=== PATIENT | male | born 1965 | race Caucasian/White ===

== ENCOUNTER 2017-09-17 10:55 | Inpatient (IN) ==
[2017-09-17] MEDS ORDERED: DEXTROSE 50% 25 GM/50 ML VIAL IV PRN (11:05)
[2017-09-17] MEDS ORDERED: GLUCAGON 1 MG VIAL IM PRN (11:05)
[2017-09-17] MEDS: INSULIN REGULAR 100 UNIT/ML SUBCUT SCH ×3 (12:09→21:11)
[2017-09-17] MEDS: SODIUM CHLORIDE 0.45% 1,000 ML IV SCH (12:50)
[2017-09-17 12:57] LABS: Apearance,Urine CLEAR (Clear); Blood, Urine Negative (Negative); Glucose,Urine (UA) Negative (Negative); Ketones,Urine 5 mg/dL (Negative); Mucus,Urine Few /LPF (Occasional); Nitrite,Urine Negative (Negative); Protein,Urine 100 MG/DL; RBC,Urine 1 /HPF (0-4); Urine Color Amber (Yellow); Urine Specific Gravity 1.034 (1.001-1.035); WBC,Urine 2 /HPF (0-6)
[2017-09-17 13:00] LABS: Bilirubin,Urine Moderate mg/dL (Negative)
[2017-09-17] MEDS: LEVOFLOXACIN INJ 500 MG in PREMIX 1 EACH IV SCH (14:20)
[2017-09-17] MEDS: ACETAMINOPHEN 325 MG TABLET PO PRN ×2 (14:23→22:51)
[2017-09-17 15:07] LABS: Eosinophils % 0.7 % (0.00-10.9); Hematocrit 48.7 VOL% (42.0-52.0); Immature Granulocytes % 0.7 %; Immature Granulocytes Absolute 0.03 #; Lymphocytes # 0.3 10*3/uL (1.4-4.0); Lymphocytes % 6.7 % (21.2-54.2); Mean Corpuscular HGB Conc 34.9 GM/DL (32-36); Mean Corpuscular Hemoglobin 29 PG (27-34); Mean Corpuscular Volume 82.4 FL (87-102); Mean Platelet Volume 10.5 FL (9.6-12.0); Monocytes # 0.3 10*3/uL (0.11-0.8); Monocytes % 7.6 % (1.7-12.7); Neutrophils # 3.5 10*3/uL (1.4-7.4); Neutrophils % 83.3 % (38.7-73.9); Platelet Count 138 T/CUMM (130-400); Red Blood Count 5.91 MC/CUMM (3.8-5.5); Red Cell Distribution Width 12.6 % (9.3-17.3); White Blood Count 4.2 T/CUMM (4-12)
[2017-09-17 15:27] LABS: Free T4 (Free Thyroxine) 1.2 NG/DL (0.76-1.46)
[2017-09-17] MEDS: CLINDAMYCIN INJ 300 MG in PREMIX 1 EACH IV SCH ×2 (15:30→22:48)
[2017-09-17 15:33] LABS: Albumin 2.9 G/DL (3.4-5.0); Calcium 7.8 MG/DL (8.5-10.1); Osmolality,Calculated 276.7 MOS/KG (273-304); Potassium 3.7 MMOL/L (3.5-5.1); Thyroid Stimulating Hormone 0.886 uIU/ml (0.358-3.74); Total Protein 6.2 G/DL (6.4-8.3)
[2017-09-17] MEDS: ONDANSETRON 4 MG/2 ML VIAL IV PRN ×2 (20:09→23:26)
[2017-09-17] MEDS: CORTISONE ACETATE 25 MG TABLET PO SCH (21:50)
[2017-09-18] MEDS: SODIUM CHLORIDE 0.45% 1,000 ML IV SCH ×3 (04:28→20:45)
[2017-09-18] MEDS: ONDANSETRON 4 MG/2 ML VIAL IV PRN ×3 (04:30→20:32)
[2017-09-18] MEDS: CLINDAMYCIN INJ 300 MG in PREMIX 1 EACH IV SCH ×3 (05:33→22:44)
[2017-09-18 08:10] LABS: Albumin 2.7 G/DL (3.4-5.0); Bilirubin,Total 3.2 MG/DL (0.2-1.0); Calcium 7.7 MG/DL (8.5-10.1); Osmolality,Calculated 271.1 MOS/KG (273-304); Potassium 4.2 MMOL/L (3.5-5.1); Total Protein 5.9 G/DL (6.4-8.3)
[2017-09-18 08:30] LABS: Basophils % 0.9 % (0.0-0.8); Eosinophils # 0.3 10*3/uL (0.0-0.87); Eosinophils % 7.5 % (0.00-10.9); Hematocrit 44.3 VOL% (42.0-52.0); Hemoglobin 15.7 GM/DL (14.0-18.0); Immature Granulocytes % 0.3 %; Immature Granulocytes Absolute 0.01 #; Lymphocytes # 0.6 10*3/uL (1.4-4.0); Lymphocytes % 18.5 % (21.2-54.2); Mean Corpuscular HGB Conc 35.4 GM/DL (32-36); Mean Corpuscular Hemoglobin 29 PG (27-34); Mean Corpuscular Volume 82.5 FL (87-102); Mean Platelet Volume 10.3 FL (9.6-12.0); Monocytes # 0.4 10*3/uL (0.11-0.8); Monocytes % 12.4 % (1.7-12.7); Neutrophils # 2.1 10*3/uL (1.4-7.4); Neutrophils % 60.4 % (38.7-73.9); Red Blood Count 5.37 MC/CUMM (3.8-5.5); Red Cell Distribution Width 12.4 % (9.3-17.3); White Blood Count 3.5 T/CUMM (4-12)
[2017-09-18 08:35] LABS: Platelet Count 82 T/CUMM (130-400)
[2017-09-18] MEDS: FLUDROCORTISONE 0.1 MG TABLET PO SCH (08:47)
[2017-09-18] MEDS: LISINOPRIL 5 MG TABLET PO SCH (08:47)
[2017-09-18] MEDS: DOXYCYCLINE HYCLATE INJ 100 MG in SODIUM CHLORIDE 0.9% 100 ML IV SCH ×2 (08:47→20:33)
[2017-09-18] MEDS: INSULIN GLARGINE 100 UNIT/ML SUBCUT SCH (08:53)
[2017-09-18] MEDS: INSULIN REGULAR 100 UNIT/ML SUBCUT SCH ×4 (08:56→20:40)
[2017-09-18 09:23] LABS: Hypochromasia 1+; Microcytosis Slight; Platelet Estimate Decreased
[2017-09-18] MEDS: IBUPROFEN 400 MG TABLET PO PRN ×2 (10:33→20:33)
[2017-09-18] MEDS: MONTELUKAST 10 MG TABLET PO SCH (10:33)
[2017-09-18 11:22] LABS: Hepatitis A Ab IgM Quant 0.26 Index; Hepatitis A Ab IgM Result Negative (Negative); Hepatitis B Core IgM Quant 0.11 Index; Hepatitis B Core IgM Result Negative (Negative); Hepatitis B Surface Ag Quant < 0.10 Index; Hepatitis B Surface Ag Result Negative (Negative); Hepatitis C Virus Ab Quant < 0.02 Index; Hepatitis C Virus Ab Result Negative (Negative)
[2017-09-18] MEDS: CORTISONE ACETATE 25 MG TABLET PO SCH ×3 (11:48→20:32)
[2017-09-18] MEDS: LEVOFLOXACIN INJ 500 MG in PREMIX 1 EACH IV SCH (12:38)
[2017-09-18] MEDS: ACETAMINOPHEN 325 MG TABLET PO PRN ×2 (14:03→17:37)
[2017-09-19] MEDS: ACETAMINOPHEN 325 MG TABLET PO PRN (03:27)
[2017-09-19 05:29] LABS: Basophils % 1.1 % (0.0-0.8); Eosinophils # 0.1 10*3/uL (0.0-0.87); Eosinophils % 4.4 % (0.00-10.9); Hemoglobin 16.1 GM/DL (14.0-18.0); Immature Granulocytes % 0.7 %; Immature Granulocytes Absolute 0.02 #; Lymphocytes # 0.6 10*3/uL (1.4-4.0); Lymphocytes % 22.5 % (21.2-54.2); Mean Corpuscular HGB Conc 35.8 GM/DL (32-36); Mean Corpuscular Hemoglobin 30 PG (27-34); Mean Corpuscular Volume 82.6 FL (87-102); Mean Platelet Volume 10.2 FL (9.6-12.0); Monocytes # 0.3 10*3/uL (0.11-0.8); Neutrophils # 1.6 10*3/uL (1.4-7.4); Neutrophils % 59.3 % (38.7-73.9); Red Blood Count 5.45 MC/CUMM (3.8-5.5); Red Cell Distribution Width 12.3 % (9.3-17.3); White Blood Count 2.8 T/CUMM (4-12)
[2017-09-19 05:30] LABS: Platelet Count 87 T/CUMM (130-400)
[2017-09-19] MEDS: CLINDAMYCIN INJ 300 MG in PREMIX 1 EACH IV SCH ×3 (05:45→22:51)
[2017-09-19 05:49] LABS: Hypochromasia Slight; Microcytosis Slight; Platelet Estimate Decreased
[2017-09-19 05:57] LABS: Albumin 2.7 G/DL (3.4-5.0); Bilirubin,Total 2.3 MG/DL (0.2-1.0); Calcium 8.1 MG/DL (8.5-10.1); Osmolality,Calculated 272.2 MOS/KG (273-304); Potassium 5.6 MMOL/L (3.5-5.1); Total Protein 6.1 G/DL (6.4-8.3)
[2017-09-19] MEDS: INSULIN REGULAR 100 UNIT/ML SUBCUT SCH ×4 (07:18→21:26)
[2017-09-19] MEDS ORDERED: POTASSIUM CHLORIDE 20 MEQ TABLET PO PRN (07:28)
[2017-09-19] MEDS: DOXYCYCLINE HYCLATE INJ 100 MG in SODIUM CHLORIDE 0.9% 100 ML IV SCH ×2 (08:03→20:00)
[2017-09-19] MEDS: CORTISONE ACETATE 25 MG TABLET PO SCH ×3 (09:21→20:59)
[2017-09-19] MEDS: LISINOPRIL 5 MG TABLET PO SCH (09:25)
[2017-09-19] MEDS: MONTELUKAST 10 MG TABLET PO SCH (09:25)
[2017-09-19] MEDS: FLUDROCORTISONE 0.1 MG TABLET PO SCH (09:26)
[2017-09-19] MEDS: IBUPROFEN 400 MG TABLET PO PRN ×2 (09:27→15:45)
[2017-09-19] MEDS: INSULIN GLARGINE 100 UNIT/ML SUBCUT SCH (09:28)
[2017-09-19] MEDS: ONDANSETRON 4 MG/2 ML VIAL IV PRN ×2 (09:31→17:51)
[2017-09-19] MEDS: LEVOFLOXACIN INJ 500 MG in PREMIX 1 EACH IV SCH (12:17)
[2017-09-19] MEDS: SODIUM CHLORIDE 0.45% 1,000 ML IV SCH (12:21)
[2017-09-19] MEDS: ALUMINUM/MAGNES/SIMETH MAX STR 30 ML UDCUP PO PRN ×2 (15:40→21:07)
[2017-09-19] MEDS: PROMETHAZINE 25 MG/1 ML VIAL IM PRN (20:57)
[2017-09-20] MEDS: ALUMINUM/MAGNES/SIMETH MAX STR 30 ML UDCUP PO PRN (04:25)
[2017-09-20 05:57] LABS: Basophils % 0.6 % (0.0-0.8); Eosinophils # 0.1 10*3/uL (0.0-0.87); Eosinophils % 2.3 % (0.00-10.9); Hematocrit 47.9 VOL% (42.0-52.0); Hemoglobin 16.3 GM/DL (14.0-18.0); Immature Granulocytes % 0.4 %; Immature Granulocytes Absolute 0.02 #; Lymphocytes # 1.3 10*3/uL (1.4-4.0); Lymphocytes % 26.9 % (21.2-54.2); Mean Corpuscular Hemoglobin 29 PG (27-34); Mean Corpuscular Volume 84.5 FL (87-102); Mean Platelet Volume 10.4 FL (9.6-12.0); Monocytes # 0.5 10*3/uL (0.11-0.8); Monocytes % 9.9 % (1.7-12.7); Neutrophils # 2.9 10*3/uL (1.4-7.4); Neutrophils % 59.9 % (38.7-73.9); Platelet Count 125 T/CUMM (130-400); Red Blood Count 5.67 MC/CUMM (3.8-5.5); Red Cell Distribution Width 12.6 % (9.3-17.3); White Blood Count 4.8 T/CUMM (4-12)
[2017-09-20] MEDS: CLINDAMYCIN INJ 300 MG in PREMIX 1 EACH IV SCH ×2 (06:33→17:46)
[2017-09-20] MEDS: SODIUM CHLORIDE 0.45% 1,000 ML IV SCH ×2 (06:33→16:44)
[2017-09-20 06:36] LABS: Albumin 3.1 G/DL (3.4-5.0); Bilirubin,Total 1.8 MG/DL (0.2-1.0); Calcium 8.4 MG/DL (8.5-10.1); Osmolality,Calculated 267.7 MOS/KG (273-304); Potassium 5.1 MMOL/L (3.5-5.1); Total Protein 6.6 G/DL (6.4-8.3)
[2017-09-20] MEDS: DOXYCYCLINE HYCLATE INJ 100 MG in SODIUM CHLORIDE 0.9% 100 ML IV SCH ×2 (07:29→20:30)
[2017-09-20] MEDS: LISINOPRIL 5 MG TABLET PO SCH (08:43)
[2017-09-20] MEDS: FLUDROCORTISONE 0.1 MG TABLET PO SCH (08:43)
[2017-09-20] MEDS: MONTELUKAST 10 MG TABLET PO SCH (08:43)
[2017-09-20] MEDS: INSULIN REGULAR 100 UNIT/ML SUBCUT SCH ×4 (08:45→21:09)
[2017-09-20] MEDS ORDERED: PANTOPRAZOLE 40 MG TABLET PO SCH (09:00)
[2017-09-20] MEDS: CORTISONE ACETATE 25 MG TABLET PO SCH ×2 (09:02→21:18)
[2017-09-20] MEDS: INSULIN GLARGINE 100 UNIT/ML SUBCUT SCH (09:09)
[2017-09-20] MEDS: PROMETHAZINE 25 MG/1 ML VIAL IM PRN (09:17)
[2017-09-20] MEDS ORDERED: ALUM/MAG/SIMETH/LIDO VISC 1:1 30 ML BOTTLE PO ONE (11:41)
[2017-09-20] MEDS: PANTOPRAZOLE 40 MG VIAL IV SCH ×2 (12:12→21:24)
[2017-09-20] MEDS ORDERED: TICAGRELOR 90 MG TABLET PO ONE (13:39)
[2017-09-20] MEDS ORDERED: ASPIRIN CHEW 81 MG TABLET PO ONE (13:39)
[2017-09-20] MEDS ORDERED: NITROGLYCERIN 2% OINT 1 INCH/GM PACK TOP PRN (13:40)
[2017-09-20] MEDS ORDERED: METOPROLOL TARTRATE 25 MG TABLET PO ONE (13:41)
[2017-09-20] MEDS: LEVOFLOXACIN INJ 500 MG in PREMIX 1 EACH IV SCH (13:57)
[2017-09-20] MEDS: ENOXAPARIN 120 MG/0.8 ML SYRINGE SUBCUT SCH (15:47)
[2017-09-20] MEDS ORDERED: MAGNESIUM SULF RIDER 2 GM in PREMIX 1 EACH IV PRN (15:57)
[2017-09-20] MEDS: SODIUM CHLORIDE 0.9% 1,000 ML IV SCH (17:44)
[2017-09-20] MEDS ORDERED: ROSUVASTATIN 20 MG TABLET PO SCH (21:00)
[2017-09-20] MEDS ORDERED: TICAGRELOR 90 MG TABLET PO SCH (21:00)
[2017-09-20] MEDS: METOPROLOL TARTRATE 25 MG TABLET PO SCH (21:15)
[2017-09-21] MEDS: INSULIN REGULAR 100 UNIT/ML SUBCUT SCH ×5 (00:32→17:15)
[2017-09-21] MEDS: CLINDAMYCIN INJ 300 MG in PREMIX 1 EACH IV SCH ×2 (01:00→09:40)
[2017-09-21] MEDS: SODIUM CHLORIDE 0.9% 1,000 ML IV SCH ×2 (03:36→15:29)
[2017-09-21] MEDS: ENOXAPARIN 120 MG/0.8 ML SYRINGE SUBCUT SCH (03:36)
[2017-09-21 03:55] LABS: Basophils % 0.5 % (0.0-0.8); Eosinophils # 0.1 10*3/uL (0.0-0.87); Hematocrit 47.6 VOL% (42.0-52.0); Hemoglobin 16.2 GM/DL (14.0-18.0); Immature Granulocytes % 0.3 %; Immature Granulocytes Absolute 0.02 #; Lymphocytes # 1.4 10*3/uL (1.4-4.0); Lymphocytes % 22.8 % (21.2-54.2); Mean Corpuscular Hemoglobin 29 PG (27-34); Mean Corpuscular Volume 84.1 FL (87-102); Mean Platelet Volume 9.9 FL (9.6-12.0); Monocytes # 0.6 10*3/uL (0.11-0.8); Monocytes % 9.7 % (1.7-12.7); Neutrophils # 4.1 10*3/uL (1.4-7.4); Neutrophils % 65.7 % (38.7-73.9); Platelet Count 151 T/CUMM (130-400); Red Blood Count 5.66 MC/CUMM (3.8-5.5); Red Cell Distribution Width 12.8 % (9.3-17.3); White Blood Count 6.2 T/CUMM (4-12)
[2017-09-21 04:36] LABS: Risk Ratio 7.73; VLDL CHOLESTEROL 52.4 MG/DL
[2017-09-21 04:40] LABS: Platelet Estimate Normal
[2017-09-21 04:47] LABS: Albumin 3.1 G/DL (3.4-5.0); Bilirubin,Total 1.2 MG/DL (0.2-1.0); Calcium 8.6 MG/DL (8.5-10.1); Osmolality,Calculated 268.7 MOS/KG (273-304); Potassium 5.1 MMOL/L (3.5-5.1); Total Protein 6.8 G/DL (6.4-8.3)
[2017-09-21] MEDS: DOXYCYCLINE HYCLATE INJ 100 MG in SODIUM CHLORIDE 0.9% 100 ML IV SCH (08:26)
[2017-09-21] MEDS ORDERED: ASPIRIN EC 81 MG TABLET PO SCH (09:00)
[2017-09-21] MEDS: CORTISONE ACETATE 25 MG TABLET PO SCH (09:38)
[2017-09-21] MEDS: METOPROLOL TARTRATE 25 MG TABLET PO SCH (09:38)
[2017-09-21] MEDS: MONTELUKAST 10 MG TABLET PO SCH (09:38)
[2017-09-21] MEDS: LISINOPRIL 5 MG TABLET PO SCH (09:38)
[2017-09-21] MEDS: FLUDROCORTISONE 0.1 MG TABLET PO SCH (09:38)
[2017-09-21] MEDS: PANTOPRAZOLE 40 MG VIAL IV SCH (09:39)
[2017-09-21] MEDS: INSULIN GLARGINE 100 UNIT/ML SUBCUT SCH (09:39)
[2017-09-21] MEDS: INSULIN LISPRO 100 UNIT/ML SUBCUT SCH ×2 (12:32→17:16)
[2017-09-21] MEDS ORDERED: FLUDROCORTISONE 0.1 MG TABLET PO SCH (16:00)
[2017-09-21] MEDS ORDERED: ROSUVASTATIN 10 MG TABLET PO SCH (16:15)
[2017-09-21 16:54] VITALS: BP 114/62
[2017-09-21] MEDS ORDERED: DOXYCYCLINE HYCLATE 100 MG CAPSULE PO SCH (21:00)
[2017-09-22] MEDS ORDERED: ENOXAPARIN 40 MG/0.4 ML SYRINGE SUBCUT SCH (09:00)
[2017-09-24 23:00] LABS: Ehrlichia Chaffeensis (HME)IgG <1:64 titer (<1:64)
[2017-09-25 14:40] LABS: Anaplasma phagocytophilum Negative (Negative); Ehrlichia chaffeensis Negative (Negative); Ehrlichia ewingii/canis Negative (Negative)
== END 2017-09-21 17:45 | disposition home or self-care (01) | DRG 603 ==
LOC: N.2W 11:22 → N.5E 14:51 → N.CC 09-20 15:22
PROVIDERS: ADMIT Internal Medicine Pulmonary Disease; ATTEND Internal Medicine Pulmonary Disease